=== PATIENT | female | born 1960 ===

== ENCOUNTER 2017-07-25 20:25 | Emergency (ER) | payer OTHER ==
[2017-07-25 20:46] VITALS: BP 155/87; PULSE 79; RESP 16; TEMP 97.7; O2SAT 96
[2017-07-25] MEDS ORDERED: SULFAMETHOXAZOLE/TRIMETHOPRI 800/160 MG PO ONE (21:13)
[2017-07-25] MEDS ORDERED: SULFAMETHOXAZOLE/TRIMETHOPRI 800/160 MG ONE (21:16)
== END 2017-07-25 21:35 | disposition home or self-care (01) ==
LOC: ED 20:25
DX: L02.612 Cutaneous abscess of left foot (principal); L03.032 Cellulitis of left toe
CPT/HCPCS: 87070; 87077; 87186; 87205; 99282

== ENCOUNTER 2018-10-15 17:12 | Emergency (ER) | payer OTHER ==
[2018-10-15 17:18] VITALS: RESP 18; TEMP 98.2
[2018-10-15 17:47] VITALS: PULSE 95; O2SAT 95
[2018-10-15 17:48] VITALS: BP 145/95
== END 2018-10-15 18:56 | disposition home or self-care (01) ==
LOC: ED 17:12
DX: M06.9 Rheumatoid arthritis, unspecified (principal)
CPT/HCPCS: 99282; 99283

== ENCOUNTER 2018-11-28 12:56 | Outpatient (CLI) | payer BC, OTHER ==
[2018-10-15 17:47] VITALS: O2SAT 95
== END 2018-11-28 12:57 | disposition home or self-care (01) ==
LOC: CONVCARE 12:56
PROVIDERS: ATTEND Orthopaedic Surgery
DX: M25.562 Pain in left knee (principal); M25.561 Pain in right knee; M17.0 Bilateral primary osteoarthritis of knee
CPT/HCPCS: 73560